=== PATIENT | female | born 1965 ===

== ENCOUNTER 2020-05-12 06:39 | Inpatient (IN) | payer OTHER ==
[~2020-05-12] VITALS: Ht 154.9 cm; Wt 94.8 kg
[~2020-05-12 06:39] MED LIST: ALLER-TEC10 MG PO; MEGESTROL ACETA40 MG PO
== END 2020-05-14 18:03 | disposition home or self-care (01) | DRG 743 ==
LOC: CIR.AMB 06:39 → O/R 09:00 → OB/GYN 09:00 → CIR.AMB 10:00 → OB/GYN 10:00 → EDSTATUS 10:00 → CIR.AMB 20:15 → OB/GYN 05-13 09:34
PROVIDERS: ADMIT Specialist; ATTEND Specialist
PROC: 0UJD4ZZ Inspection of Uterus and Cervix, Percutaneous Endoscopic Approach (ICD-10-PCS; 2020-05-12)
PROC: 0UT20ZZ Resection of Bilateral Ovaries, Open Approach (ICD-10-PCS; 2020-05-12)
PROC: 0UT70ZZ Resection of Bilateral Fallopian Tubes, Open Approach (ICD-10-PCS; 2020-05-12)
PROC: 0UT90ZZ Resection of Uterus, Open Approach (ICD-10-PCS; principal; 2020-05-12 20:15)
DX: D25.0 Submucous leiomyoma of uterus (principal); D25.1 Intramural leiomyoma of uterus; N72 Inflammatory disease of cervix uteri; N83.292 Other ovarian cyst, left side; N83.291 Other ovarian cyst, right side; N83.8 Other noninflammatory disorders of ovary, fallopian tube and broad ligament; N88.8 Other specified noninflammatory disorders of cervix uteri; N95.0 Postmenopausal bleeding